=== PATIENT | female | born 1985 | race Caucasian/White ===

== ENCOUNTER 2025-02-08 13:10 | Outpatient (REF) | payer OTHER, SELFPAY ==
--- OUTSIDE RECORDS SUMMARY | 2024-01-05 13:00 | XMS_ITS ---
Author Organization [facility] Address [address] [facility] [address] [place] [address] Phone [phone] Care Team Providers Care Changeover Operator Name Role Phone Thony Das MD Unavailable [phone] Vipin Day MD Unavailable Unavailable [facility] Unavailable [phone] REASON FOR VISIT follow-up hospitalization Social History Sex Observation Social History Observation Description Sex Observation Female Encounters Date Time Type Facility Location Provider Diagnosis 01/05/2024 01:00 PM Office Visit [facility] [address] [place] [address] Susana Franz Plan Of Treatment No Information Medical (General) History Medical History History ICD Code hypothyroidism Barretts esophagus alcoholic hepatitis ascites Hepatic encephalopathy DVT RUE Chronic Anticoagulation Eliquis c dificile GERD Vaccine: None / Ningun(a) Surgical History Surgery Date(Month/Year) Lysis of adhesions and small bowel resection for possible stricture of the small bowel 2008 C section X-2 Colonoscopy Appendectomy [facility] tooth extraction Hysterectomy Hospitalization History Reason Date(Month/Year) [facility] Liver failure/ severe alcoholic hepa titis 11/27-12/25/2023 Progress Notes * ARLENE NICKDOB:1985 (39 yo F)Acc No.[id number]:01/05/2024 Hospital Follow-Up Patient: ARLENE NICK Provider: Susana Franz :1985 Age:38 Y Sex:Female Date:01/05/2024 Address:[address] [place] [address], [place], [id number] Subjective: * Chief Complaints: * Follow-up hospitalization * Electronic signature of Suleman Franz NP on 02/08/2025 at 01:25 PM EST Sign off status: Pending * Provider: Susana Franz Date: 01/05/2024 Generated for Killian viera/Cici/Ferchoitting on: 02/08/2025 01:25 PM EST
--- OUTSIDE RECORDS SUMMARY | 2024-02-08 11:30 | XMS_ITS ---
Author Organization Doug Macdonald MD Address [address] [place] [address] [place] [address] Care Team Providers Care Care Services Manager Name Role Phone Doug Macdonald IV [phone] Allergies Allergen (clinical drug ingredient) Drug/Non Drug Allergy documented on EMR Reaction Allergy Type Onset Date Status metoclopramide Reglan nausea and vomiting Drug Allergy Active morphine Morphine hives Drug Allergy Active REASON FOR VISIT follow up Medications Medication SIG (Take, Route, Frequency, Duration) Notes Start Date End Date Status Lactulose 20 GM/30ML 15 mL as needed Ora lly Once a day; Duration: 30 days 01/06/2024 Active Pepcid 40 MG 1 tablet Orally Once a day; Duration: 30 days 01/06/2024 Active Ergocalciferol 1.25 MG (94812 UT) 1 capsule Orally Active Folic Acid 1 MG 1 tablet Orally Once a day Active hydrOXYzine HCl 10 MG 1 tablet Orally Three times daily As needed for anxiety Active Systane 0.4-0.3 % as directed Ophthalmic Active Lansoprazole 30 MG 1 capsule 1/2 to 1 h our before meal Orally twice daily Active Levothyroxine Sodium 50 MCG 1 tablet in the morning on an empty stomach Orally Once a day Active Magnesium Oxide 400 MG 1 tablet as neede d Orally Once a day Active Lactulose 20 GM/30ML 15 mL Orally twice daily Active PredniSONE (Diaz) Act von rifAXIMin 550 MG 1 tablet Orally Twic e a day Active Spironolactone 25 MG 1 tablet Orally Active Thiamine Mononitrate 100 MG 1 tablet Ora lly Once a day Active Apixaban 5 MG 1 tablet Orally twic e daily Active Social History Tobacco Use: Social History Observation Description Date Details (start date - stop date) Former Smoker NA - NA Tobacco Control (Standard) Question Answer Notes Tobacco use: Former smoker How long has it been since you last smoked? Less than 1 month Encounters Encounter Location Date [place] [address] 02/08/2024 Doug Macdonald Plan Of Treatment Next Appt Details Provider Name:Doug Simon Arabella neal, 02/20/2025 09:45:00 AM, [place], [address], Provider Name:Doug Simon Arabella neal, 02/23/2025 09:15:00 AM, [place], [address], Progress Notes * Randi NICKDOB:1985 (39 yo F)Acc No.[id number]:02/08/2024 Progress Notes Patient: Randi JOHNSON Provider: Bk Macdonald MD :1985 A ge:38 Y S ex:Female Date:02/08/2024 Address:[address] [place] [address] [place] Subjective: * Chief Complaints: * 1 . Follow up. * Medical History: H ypothyroidism, Barretts Esophagus, GERD, Anxiety, DVT in Right Upper Extremity due to PICC Line. * Surgical History: C -Section x2 , Webbing of Intestines with Exploratory Lap , Hysterectomy - Dr. Vu 2020. * Family History: HTN Diabetes Thyroid disease HLD Heart attack. * Social History: T obacco Use: T obacco Control (Standard) T obacco use: F ormer smoker H ow long has it been since you last smoked??Less than 1 month D rugs/Alcohol: D rugs H ave you used drugs other than those for medical reasons in the past 12 months? N o Do you smoke marijuana?: Denies. Do you drink alcohol?: Yes. * Medications: T aking Apixaban 5 MG Tablet 1 tablet Orally twice daily , Taking Thiamine Mononitrate 100 MG Tablet 1 tablet Orally Once a day , Taking Spironolactone 25 MG Tablet 1 tablet Orally , Taking rifAXIMin 550 MG Tablet 1 tablet Orally Twice a day , Taking PredniSONE (Diaz) , Taking Systane 0.4-0.3 % Solution as directed Ophthalmic , Taking Magnesium Oxide 400 MG Tablet 1 tablet as needed Orally Once a day , Taking Levothyroxine Sodium 50 MCG Tablet 1 tablet in the morning on an empty stomach Orally Once a day , Taking Lansoprazole 30 MG Capsule Delayed Release 1 capsule 1/2 to 1 hour before meal Orally twice daily , Taking Lactulose 20 GM/30ML Solution 15 mL Orally twice daily , Taking hydrOXYzine HCl 10 MG Tablet 1 tablet Orally Three times daily As needed for anxiety, Taking Folic Acid 1 MG Tablet 1 tablet Orally Once a day , Taking Ergocalciferol 1.25 MG (14825 UT) Capsule 1 capsule Orally , Taking Pepcid 40 MG Tablet 1 tablet Orally Once a day , Taking Lactulose 20 GM/30ML Solution 15 mL as needed Orally Once a day , Medication List reviewed and reconciled with the patient * Allergies: M orphine: hives, Reglan: nausea and vomiting. Objective: * Vitals: Assessment: Plan: * Treatment: * Preventive Medicine: Screenings: F ALL RISK SCREENING Fall Risk Assessment: N o falls in the past year Plan of Care: D ocumented U rinary Incontinence Assessment: Gabriel watkinsent Masoud emale 01/06/24 - - Bone Density- - age 38 N/A - - Scan- - - - -Med- - - - -mammogram- - age 38 N/A IMMUNIZATION 01/06/24 - - -Pneumo vax - - - - - -Flu vax - - - - - - refused at this time - - -Shingles vax - - -- - - -CRC screen 01/06/24 - - - - --FIT - - - - - - - - - - --Scope- - - - - [address] Cummings - - -[facility]- - - -. * Images: * Electronic signature of Marco Macdonald IV, MD on 02/08/2025 at 01:26 PM EST Sign off status: Pending * Provider: Bk Macdonald MD Date: 04/10/2023 Generated for Killian viera/Cici/eTransmitting on: 1 04/11/2024 01:26 PM EST
--- OUTSIDE RECORDS SUMMARY | 2024-05-10 05:30 | XMS_ITS ---
Author Organization [facility] Address [address] [address] [place] [address] Care Team Providers Care Candy Forming Machine Operator Name Role Phone Lester Funes Primary Care Provider Allergies Allergen (clinical drug ingredient) Drug/Non Drug Allergy documented on EMR Reaction Allergy Type Onset Date Status metoclopramide Reglan nausea and vomiting Drug Allergy Active morphine Morphine hives Drug Allergy Active REASON FOR VISIT 1mth anxiety f/u Medications Medication SIG (Take, Route, Frequency, Duration) Notes Start Date End Date Status Eliquis 5 MG as directed Orally t wice a day Active Gabapentin 300 MG 1 capsule Orally three times a day; Duration: 90 days As needed 04/12/2024 Active buPROPion HCl ER (SR) 150 MG Days 1-3, t franklin 1 tablet daily. After day 3, take 1 tablet twice daily; Duration: 90 days 05/03/2024 Active Citalopram Hydrobromide 10 MG 1 tablet Orally Once a day; Duration: 90 days 04/12/2024 Active hydrOXYzine Pamoate 25 MG 1 tablet as ne eded Orally Once a day; Duration: 30 day(s) 04/12/2024 Active Levothyroxine Sodium 50 MCG 1 tablet in the morning on an empty stomach Orally Once a day Active Famotidine 40 MG 1 tablet Orally Once a day Active Social History AUDIT-C (Standard) Question Answer Notes Did you have a drink contain ing alcohol in the past year? Yes How often did you have a dri nk containing alcohol in the past year? Monthly or less (1 point) How many drinks did you have on a typical day when you were drinking in the past year? 1 or 2 drinks (0 point) How often did you have six o r more drinks on one occasion in the past year? Never (0 point) Points 1 Interpretation Negative Encounters Encounter Location Date Provider Diagnosis [facility] [place] [address] 05/10/2024 Lester Funes Plan Of Treatment No Information Progress Notes * Randi NICKDOB:1985 (39 yo F)Acc No.[id number]:05/10/2024 Progress Note Patient: Randi JOHNSON Provider: Lu Funes DO :1985 A ge:38 Y S ex:Female Date:05/10/2024 Address:[address] [place] [address], [id number] Subjective: * Chief Complaints: * 1 . 1mth anxiety f/u. * Medical History: L iver Problems, Thyroid Problems, Migraines, Reflux/Heart Burn. * Surgical History: A ppendectomy 2008, Stomach Surgery 2008. * Family History: 1 son(s) , 1 daughter(s) - healthy. . * Social History: D rug/Alcohol: A LEDA-C (Standard) D id you have a drink containing alcohol in the past year? Y es H ow often did you have a drink containing alcohol in the past year? M onthly or less (1 point) H ow many drinks did you have on a typical day when you were drinking in the past year? 1 or 2 drinks (0 point) H ow often did you have six or more drinks on one occasion in the past year? N ever (0 point) P oints 1 I nterpretation N egative * Medications: T aking Levothyroxine Sodium 50 MCG Tablet 1 tablet in the morning on an empty stomach Orally Once a day , Taking Famotidine 40 MG Tablet 1 tablet Orally Once a day , Taking Eliquis 5 MG Tablet as directed Orally twice a day , Taking Gabapentin 300 MG Capsule 1 capsule Orally three times a day As needed, Taking Citalopram Hydrobromide 10 MG Tablet 1 tablet Orally Once a day , Taking hydrOXYzine Pamoate 25 MG Capsule 1 tablet as needed Orally Once a day , Taking buPROPion HCl ER (SR) 150 MG Tablet Extended Release 12 Hour Days 1-3, take 1 tablet daily. After day 3, take 1 tablet twice daily , Medication List reviewed and reconciled with the patient * Allergies: M orphine: hives, Reglan: nausea and vomiting. Objective: * Vitals: Assessment: Plan: * Treatment: * Billing Information: * Visit Code: * Procedure Codes: * [place], [id number] on 02/08/2025 at 01:26 PM EST Sign off status: Pending * Provider: Lu Funes DO Date: 0 05/10/2024 Generated for Killian viera/Cici/Marissa on: 04/11/2024 01:26 PM EST
--- OUTSIDE RECORDS SUMMARY | 2024-06-16 13:15 | XMS_ITS ---
Author Organization Doug Macdonald MD Address [address] [place] [place] [address] Care Team Providers Care Residential Therapist Name Role Phone Chiquita Harvey Unavailable [phone] REASON FOR VISIT possible sinus infection Encounters Encounter Location Date Provider Diagnosis Doug Macdonald MD [address] [place] [address] [place] [address] 06/16/2024 Chiquita Harvey Plan Of Treatment Next Appt Details Provider Name:Doug neal, 02/20/2025 09:45:00 AM, [address] [place] [address] [place], [address], Provider Name:Doug neal, 02/23/2025 09:15:00 AM, [address] [place] [address] [place], [address], Progress Notes * Randi NICKDOB:1985 (39 yo F)Acc No.[id number]:06/16/2024 Progress Notes Patient: Randi JOHNSON Provider: MICAH Hurtado :1985 A ge:38 Y S ex:Female Date:06/16/2024 Address:[address] [place] Subjective: * Chief Complaints: * 1 . Possible sinus infection. * Medical History: Objective: * Vitals: Assessment: Plan: * Treatment: * Images: * Electronic signature of MICAH Pressley cca on 02/08/2025 at 01:25 PM EST Sign off status: Pending * Provider: MICAH Hurtado Date: 0 06/16/2024 Generated for Killian viera/Cici/Marissa on: 1 04/11/2024 01:25 PM EST
--- OUTSIDE RECORDS SUMMARY | 2024-06-17 12:15 | XMS_ITS ---
Author Organization Doug Macdonald MD Address [address] [place] [address] Care Team Providers Care Material Man Name Role Phone Doug Macdonald IV [phone] REASON FOR VISIT cmat Encounters Encounter Location Date Provider Diagnosis Doug Macdonald MD [address] [place] [address] [place] [address] 06/17/2024 Doug Macdonald Plan Of Treatment Next Appt Details Provider Name:Doug neal, 02/20/2025 09:45:00 AM, [address] [place] [address] [place], [address], Provider Name:Doug neal, 02/23/2025 09:15:00 AM, [address] [place] [address] [place], [address], Progress Notes * Randi NICKDOB:1985 (39 yo F)Acc No.[id number]:06/17/2024 Patient: Randi JOHNSON Provider: Bk Macdonald MD :1985 A ge:38 Y S ex:Female Date:06/17/2024 Address:[place] [place] Subjective: * Chief Complaints: * 1 . Cmat. * Medical History: Objective: * Vitals: Assessment: Plan: * Treatment: * Images: * Electronic signature of Marco Macdonald IV, MD on 02/08/2025 at 01:25 PM EST Sign off status: Pending * Provider: Bk Macdonald MD Date: 0 06/17/2024 Generated for Killian viera/Cici/Marissa on: 1 04/11/2024 01:25 PM EST
--- OUTSIDE RECORDS SUMMARY | 2025-02-08 13:25 | XMS_ITS | Patient Health Record ---
Author Organization [facility] Address [address] [address] [place] [address] Care Team Providers Care Retrofit Installer Name Role Phone Lester Funes Primary Care Provider Allergies Allergen (clinical drug ingredient) Drug/Non Drug Allergy documented on EMR Reaction Allergy Type Onset Date Status metoclopramide Reglan nausea and vomiting Drug Allergy Active morphine Morphine hives Drug Allergy Active Results Component Value Reference Range Notes TSH+Free T4 Reviewed date:04/23/2024 04:26:10 PM Interpretation: Performing Lab:[facility] [address] [place] [address], Phone - [phone], Director - Pao Notes/Report: TSH 0.400 0.450-4.500 uIU/mL T4,Free(Direct) 1.14 0.82-1.77 ng/dL Lip Reviewed date:04/23/2024 04:34:14 PM Interpretation: Performing Lab:[facility], Phone - [phone], Director - Pao Notes/Report: Glucose 90 70-99 mg/dL BUN 7 6-20 mg/dL Creatinine 0.35 0.57-1.00 mg/dL eGFR 135 >59 mL/min/1.73 BUN/Creatinine Ratio 20 9-23 Sodium 140 134-144 mmol/L Potassium 4.1 3.5-5.2 mmol/L Chloride 103 96-106 mmol/L Carbon Dioxide, Total 24 20-29 mmol/L Calcium 9.2 8.7-10.2 mg/dL Protein, Total 6.2 6.0-8.5 g/dL Albumin 3.7 3.9-4.9 g/dL Globulin, Total 2.5 1.5-4.5 g/dL Bilirubin, Total 0.5 0.0-1.2 mg/dL Alkaline Phosphatase 243 44-121 IU/L AST (SGOT) 54 0-40 IU/L ALT (SGPT) 20 0-32 IU/L Cholesterol, Total 194 100-199 mg/dL Triglycerides 56 0-149 mg/dL HDL Cholesterol 121 >39 mg/dL VLDL Cholesterol Amanuel 11 5-40 mg/dL LDL Chol Calc (NIH) 62 0-99 mg/dL WBC 3.4 3.4-10.8 x10E3/uL RBC 4.60 3.77-5.28 x10E6/uL Hemoglobin 14.5 11.1-15.9 g/dL Hematocrit 43.6 34.0-46.6 % MCV 95 79-97 fL MCH 31.5 26.6-33.0 pg MCHC 33.3 31.5-35.7 g/dL RDW 13.8 11.7-15.4 % Platelets 111 150-450 x10E3/uL Neutrophils 58 Not Estab. % Lymphs 28 Not Estab. % Monocytes 11 Not Estab. % Eos 2 Not Estab. % Basos 1 Not Estab. % Neutrophils (Absolute) 2.0 1.4-7.0 x10E3/uL Lymphs (Absolute) 0.9 0.7-3.1 x10E3/uL Monocytes(Absolute) 0.4 0.1-0.9 x10E3/uL Eos (Absolute) 0.1 0.0-0.4 x10E3/uL Baso (Absolute) 0.0 0.0-0.2 x10E3/uL Immature Granulocytes 0 Not Estab. % Immature Grans (Abs) 0.0 0.0-0.1 x10E3/uL Reason For Referral Reason dysplastic lesion on abdomen Diagnosis 1 Skin lesion (L98.9) [facility] Referring Provider First Name Lester Referring Provider Last Name Marin Referring Provider Speciality Family [facility] ctice Referred Provider Specialty Dermatology Clinical Notes Dennis Patel 04/19/2024 04:50:34 PM > [place] [facility] [place] Referral Priority Routine Medications Medication SIG (Take, Route, Frequency, Duration) Notes Start Date End Date Status Eliquis 5 MG as directed Orally t wice a day Active Gabapentin 300 MG 1 capsule Orally three times a day; Duration: 90 days As needed 04/12/2024 Active hydrOXYzine Pamoate 25 MG 1 tablet as ne eded Orally Once a day; Duration: 30 days Active Levothyroxine Sodium 50 MCG 1 tablet in the morning on an empty stomach Orally Once a day Active Famotidine 40 MG 1 tablet Orally Once a day Active buPROPion HCl ER (SR) 150 MG Days 1-3, t franklin 1 tablet daily. After day 3, take 1 tablet twice daily; Duration: 90 days 05/03/2024 Active Citalopram Hydrobromide 10 MG 1 tablet Orally Once a day; Duration: 90 days 04/12/2024 Active Social History Tobacco Use: Social History Observation Description Date Details (start date - stop date) Current Smoker NA - NA AUDIT-C (Standard) Question Answer Notes Did you [...] Never (0 point) Points 1 Interpretation Negative Tobacco Control (Standard) Question Answer Notes Tobacco use: Current smoker How often do you smoke cigarettes? Every day How many cigarettes a day do you smoke? 5 or les s How soon after you wake up do you smoke your fir st cigarette? Within 5 minutes Problems Problem Type SNOMED Code ICD Code Onset Dates Problem Status W/U Status Risk Notes Problem Generalized anxiety disorder (19634083) Generalized anxiety disorder (F41.1) Active confirmed prescribed celexa. told pt to call office for worsening or persistent symptoms Problem Smoking (74137873) Smoking (F17.200) Active con firmed Problem Gastroesophageal reflux disease (894590903) GERD (gastroesophageal reflux disease) (K21.9) Active confirmed stable, continue current therapy Problem Hypothyroidism (42143981) Hypothyroidism (E03.9) Active confirmed Problem Thrombocytopenia (288745949) Thrombocytopenia (D69.6) Active confirmed Problem Neuropathy (340412555) Neuropathy (G62.9) Active confirmed presc ribed gabapentin. told pt to call office for worsening or persistent symptoms Problem Hyperlipidaemia (94764868) Hyperlipemia (E78.5) Active confirmed Problem Cigarette smoker (51114123) Cigarette smoker (F17.210) Active confirmed discussed smoking cessation methods, health effects of smoking in the short term and long filler cigar roller machine , and the benefits of smoking cessation for 4 minutes Vital Signs Heart Rate 81 /min 04/12/2024 Temperature 99.1 degrees Fahrenheit 04/12/2024 Oximetry 98 % 04/12/2024 Height 5ft in 04/12/2024 Weight 104.2 lbs 04/12/2024 BMI 20.35 kg/m2 04/12/2024 Encounters Encounter Location Date Provider Diagnosis [facility] [address] [facility] [address] [place] [address] 04/12/2024 Lester Marin Skin lesion L98.9 ; History of DVT in adulthood Z86.718 ; Neuropathy G62.9 ; Hyperlipemia E78.5 ; Hypothyroid E03.9 ; Generalized anxiety disorder F41.1 ; GERD (gastroesophageal reflux disease) K21.9 ; Hypothyroidism E03.9 ; Disorder of trigeminal nerve, 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 and Cigarette smoker F17.210 [facility] [address] [place] [address] 05/03/2024 Lester Funes [facility] [address] [place] [address] 04/12/2024 Lester Wallaceaham [facility] [address] [place] [address] 04/19/2024 Lester Wallaceaham [facility] [address] [place] [address] 04/23/2024 Lester Wallaceaham [facility] [address] [place] [address] 04/25/2024 Lester Funes [facility] [address] [facility] [address] [place] [address] 05/02/2024 Lester Wallaceaham [facility] [address] [facility] [address] [place] [address] 05/03/2024 Lester Funes [facility]-[address] [place] [address] 05/03/2024 Lester Funes Thrombocytopenia D69 .6 ; Elevated alkaline phosphatase level R74.8 and Elevated liver enzymes R74.[address] [place] [address] 05/03/2024 Lester Funes Smoking F17.200 [facility] [place] [address] 06/17/2024 Lester Funes Skin lesion L98.9 Assessments Encounter Date Diagnosis (ICD Code) Assessment Notes Treatment Notes Treatment Clinical Notes Section Notes 04/12/2024 Skin lesion (ICD-10 - L98.9) referred to dermatology 04/12/2024 History of DVT in adulthood (ICD-10 - Z86.718) stable, continue current therapy 05/03/2024 Thrombocytopenia (ICD-10 - D69.6) 05/03/2024 Elevated alkaline phosphatase level (ICD-10 - R74.8) 05/03/2024 Smoking (ICD-10 - F17.200) 06/17/2024 Skin lesion (ICD-10 - L98.9) 05/03/2024 Elevated liver enzymes (ICD-10 - R74.8) 04/12/2024 Neuropathy (ICD-10 - G62.9) prescribed gabapentin. told pt to call office for worsening or persistent symptoms 04/12/2024 Hyperlipemia (ICD-10 - E78.5) 04/12/2024 Hypothyroid (ICD-10 - E03.9) stable, continue current therapy 04/12/2024 Generalized anxiety disorder (ICD-10 - F41.1) prescribed celexa. told pt to call office for worsening or persistent symptoms 04/12/2024 GERD (gastroesophageal reflux disease) (ICD-10 - K21.9) stable, continue current therapy 04/12/2024 Hypothyroidism (ICD-10 - E03.9) 04/12/2024 Disorder of trigeminal nerve, unspecified (ICD-10 - G50.9) prescribed gabapentin. told pt to call office for worsening or persistent symptoms 04/12/2024 Cigarette smoker (ICD-10 - F17.210) discussed smoking cessation methods, health effects of smoking in the short term and long filler cigar roller machine , and the benefits of smoking cessation for 4 minutes Plan Of Treatment No Information Insurance Providers Payer Name Payer Address Payer Phone Subscriber Number Group Number Insured Name Patient Relationship to Insured Coverage Start Date Coverage End Date [facility] [address] [place] [address] [id number] Randi Nick Self - patient is the insured Medical (General) History Medical History History ICD Code Liver Problems Thyroid Problems Migraines Reflux/Heart Burn Surgical History Surgery Date(Month/Year) Appendectomy 2008 Stomach Surgery 2008
--- OUTSIDE RECORDS SUMMARY | 2025-02-08 13:25 | XMS_ITS | Patient Health Record ---
Author Organization Doug Macdonald MD Address [address] [place] [address] [place] [address] Care Team Providers Care Feather Stitcher Name Role Phone Doug Macdonald IV Unavailable [phone] Chiquita Harvey Unavailable [phone] Allergies Allergen (clinical drug ingredient) Drug/Non Drug Allergy documented on EMR Reaction Allergy Type Onset Date Status duloxetine Cymbalta hallucinations Drug Allergy A ctive metoclopramide Reglan nausea and vomiting Drug Allergy Active morphine Morphine hives Drug Allergy Active Results Component Value Reference Range Notes CT ABDOMEN AND PELVIS Reviewed date:05/24/2024 11:11:28 AM Interpretation:Hepatic steatosis Performing Lab: Notes/Report: Hepatic steatosis CMP14+eGFR (Not yet reviewed by provider) Interpretation: Performing Lab:[facility], [address] [place] [address], Phone - [phone], Director - Pao Notes/Report: Glucose 94 70-99 mg/dL BUN 8 6-20 mg/dL Creatinine 0.51 0.57-1.00 mg/dL eGFR 123 >59 mL/min/1.73 BUN/Creatinine Ratio 16 9-23 Sodium 140 134-144 mmol/L Potassium 4.3 3.5-5.2 mmol/L Chloride 102 96-106 mmol/L Carbon Dioxide, Total 25 20-29 mmol/L Calcium 9.2 8.7-10.2 mg/dL Protein, Total 6.2 6.0-8.5 g/dL Albumin 3.6 3.9-4.9 g/dL Globulin, Total 2.6 1.5-4.5 g/dL Bilirubin, Total 0.5 0.0-1.2 mg/dL Alkaline Phosphatase 205 44-121 IU/L AST (SGOT) 47 0-40 IU/L ALT (SGPT) 19 0-32 IU/L Lipid Panel (Not yet reviewe d by provider) Interpretation: Performing Lab:[address], Phone - [phone], Director - [facility] Notes/Report: Cholesterol, Total 197 100-199 mg/dL Triglycerides 62 0-149 mg/dL HDL Cholesterol 116 >39 mg/dL VLDL Cholesterol Amanuel 11 5-40 mg/dL LDL Chol Calc (NIH) 70 0-99 mg/dL TSH+Free T4 (Not yet reviewe d by provider) Interpretation: Performing Lab:[address], Phone - [phone], Director - [facility] Notes/Report: TSH 0.244 0.450-4.500 uIU/mL T4,Free(Direct) 0.96 0.82-1.77 ng/dL Ammonia, Plasma (Not yet rev iewed by provider) Interpretation: Performing Lab:[address], Phone - [phone], Director - [facility] Notes/Report: Ammonia, Plasma 53 30-130 ug/dL C-Reactive Protein, Quant (N ot yet reviewed by provider) Interpretation: Performing Lab:[address], Phone - [phone], Director - [facility] Notes/Report: C-Reactive Protein, Quant <1 0-10 mg/L CBC With Differential/Platel et (Not yet reviewed by provider) Interpretation: Performing Lab:[address], Phone - [phone], Director - [facility] Notes/Report: WBC 3.6 3.4-10.8 x10E3/uL RBC 4.58 3.77-5.28 x10E6/uL Hemoglobin 14.6 11.1-15.9 g/dL Hematocrit 43.4 34.0-46.6 % MCV 95 79-97 fL MCH 31.9 26.6-33.0 pg MCHC 33.6 31.5-35.7 g/dL RDW 13.6 11.7-15.4 % Platelets 121 150-450 x10E3/uL Neutrophils 51 Not Estab. % Lymphs 35 Not Estab. % Monocytes 11 Not Estab. % Eos 2 Not Estab. % Basos 1 Not Estab. % Neutrophils (Absolute) 1.8 1.4-7.0 x10E3/uL Lymphs (Absolute) 1.3 0.7-3.1 x10E3/uL Monocytes(Absolute) 0.4 0.1-0.9 x10E3/uL Eos (Absolute) 0.1 0.0-0.4 x10E3/uL Baso (Absolute) 0.0 0.0-0.2 x10E3/uL Immature Granulocytes 0 Not Estab. % Immature Grans (Abs) 0.0 0.0-0.1 x10E3/uL Creatine Kinase,Total,Serum (Not yet reviewed by provider) Interpretation: Performing Lab:[facility], [address] [place] [address], [place], Phone - [phone], Director - Pao Notes/Report: Creatine Kinase,Total 42 32-182 U/L Reason For Referral Reason 1986 Diagnosis 1 Liver disease, unspe cified (K76.9) Referred Provider Specialty Medical cons ultation Referral Priority Routine Diagnosis 1 Liver disease, unspe cified (K76.9) Referral Organization Doug Macdonald MD Referring Provider First Name Doug Referring Provider Last Name Renae Referring Provider Speciality Internal M edicine Referred Provider Alf Cummings Referred Provider Specialty Gastroentero logy Referral Priority Routine Medications Medication SIG (Take, Route, Frequency, Duration) Notes Start Date End Date Status DULoxetine HCl 30 MG 1 capsule Orally On ce a day; Duration: 90 days 05/11/2024 Active hydrOXYzine HCl 10 MG 1 tablet Orally Three times daily As needed for anxiety Active Systane 0.4-0.3 % as directed Ophthalmic Active Cyanocobalamin 1000 MCG/ML 1 mL Injectio n once a month; Duration: 30 days 05/11/2024 Active Levothyroxine Sodium 50 MCG 1 tablet in the morning on an empty stomach Orally Once a day; Duration: 30 days Active Pepcid 40 MG 1 tablet Orally Once a day; Duration: 90 days 01/06/2024 Active Lactulose 20 GM/30ML 15 mL as needed Ora lly Once a day; Duration: 30 days 01/06/2024 Active Social History Tobacco Use: Social History Observation Description Date Details (start date - stop date) Current Smoker NA - NA AUDIT-C (Standard) Question Answer Notes Did you have a drink containing alcohol in the p ast year? No Points 0 Interpretation Negative Tobacco Control (Standard) Question Answer Notes Tobacco use: Current smoker How often do you smoke cigarettes? Every day How many cigarettes a day do you smoke? 5 or les s Are you interested in quitting? 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) Active confirmed Problem Liver disease (739517570) Liver disease, unspecified (K76.9) Active confirmed Problem Hypothyroidism (35577579) Hypothyroidism (E03.9) Active confirmed Problem Gastroesophageal reflux disease (976476158) GERD (gastroesophageal reflux disease) (K21.9) Active confirmed Problem Vitamin D deficiency (90730300) Vitamin D deficiency (E55.9) Active confirmed Problem Sinusitis (61131978) Sinusitis (J32.9) Active confirmed Problem Anxiety disorder (957882430) Mixed anxiety depressive disorder (F41.8) Active confirmed Problem Abnormal gait (06881721) Impaired gait (R26.9) Active confirmed Problem Cirrhosis of liver (84442680) Cirrhosis of liver (K74.60) Active confirmed Problem Inflammatory and toxic neuropathy (700147169) Peripheral polyneuropathy (G62.9) Active confirmed Problem Tobacco user (877051998) Nicotine dependence with current use (F17.200) Active confirmed Vital Signs Heart Rate 95 /min 08/30/2024 Temperature 97.1 degrees Fahrenheit 08/30/2024 Blood pressure diastolic 68 mm Hg 08/30/2024 Oximetry 98 % 08/30/2024 Height 60 in 08/30/2024 Blood pressure systolic 112 mm Hg 08/30/2024 Weight 107.2 lbs 08/30/2024 BMI 20.93 kg/m2 08/30/2024 Encounters Encounter Location Date Provider Diagnosis Doug Macdonald MD [address] [place] [address] [place] [address] 04/29/2024 Doug Macdonald Hypothyroidism, unspecified type E03.9 ; Vitamin D deficiency E55.9 ; Cirrhosis of liver K74.60 ; Lipid screening Z13.220 and Medication management Z79.899 Doug Macdonald MD [address] [place] [address] [place] [phone] 05/11/2024 Doug Macdonald Elevated LFTs R79.89 ; Cirrhosis of liver K74.60 ; Acute embolism and thrombosis of deep veins of unspecified upper extremity I82.629 ; Peripheral polyneuropathy G62.9 ; Hypothyroidism E03.9 ; Mixed anxiety depressive disorder F41.8 and Nicotine dependence with current use F17.200 Doug Macdonald MD [address] [place] [address] [place] [address] 06/16/2024 Chiquita Morosky Sinusitis J32.9 ; Si nus headache R51.9 ; Febrile illness R50.9 ; Acute cough R05.1 and Myalgia M79.10 Doug Macdonald MD [address] [place] [address] [place] [address] 08/30/2024 Doug Macdonald Hypothyroidism E03.9 ; Mixed anxiety depressive disorder F41.8 ; Nguyen's esophagus without dysplasia K22.70 ; GERD (gastroesophageal reflux disease) K21.9 ; Nicotine dependence with current use F17.200 ; Tobacco abuse counseling Z71.6 and BMI 20.0-20.9, adult Z68.20 Doug Macdonald MD [address] [place] [address] [place] [phone] 11/17/2024 Doug Macdonald MD [address] [place] [address] [place] [phone] 02/18/2024 Doug Macdonald MD [address] [place] [address] [place] [phone] 02/18/2024 Doug Macdonald MD [address] [place] [address] [place] [phone] 02/24/2024 Doug Macdonald MD [address] [place] [address] [place] [phone] 05/24/2024 Doug Macdonald MD [address] [place] [address] [place] [phone] 07/07/2024 Doug Macdonald Assessments Encounter Date Diagnosis (ICD Code) Assessment Notes Treatment Notes Treatment Clinical Notes Section Notes 04/29/2024 Hypothyroidism, unspecified type (ICD-10 - E03.9) 05/11/2024 Elevated LFTs (ICD-10 - R79.89) 05/11/2024 Cirrhosis of liver (ICD-10 - K74.60) Patient is followed GI in [place]. Continue to monitor. Will check CT Abdomen/Pelvis due to elevated LFTs 08/30/2024 Hypothyroidism (ICD-10 - E03.9) Patient is currently on Thyroid medication and is noted with thyroid levels within normal limits. Will advise to continue on current dose. Check level on next visit. 08/30/2024 Mixed anxiety depressive disorder (ICD-10 - F41.8) Patient is currently on anxiety/depression medication and is doing well. Will advise to continue on current dose. Patient denies any suicidal or homicidal ideations. Patient to inform office of any changes. 06/16/2024 Sinusitis (ICD-10 - J32.9) COVID-19 swab negative, flu swab negative. DDT 3 mL given IM this visit. Rocephin 1 g given IM this visit. Begin Augmentin 875 twice daily x 10 days. Begin Medrol Dosepak as directed. Advised patient seek medical attention for worsening of symptoms. 06/16/2024 Sinus headache (ICD-10 - R51.9) COVID-19 swab negative, flu swab negative. DDT 3 mL given IM this visit. Rocephin 1 g given IM this visit. Begin Augmentin 875 twice daily x 10 days. Begin Medrol Dosepak as directed. Advised patient seek medical attention for worsening of symptoms. 06/16/2024 Febrile illness (ICD-10 - R50.9) COVID-19 swab negative, flu swab negative. DDT 3 mL given IM this visit. Rocephin 1 g given IM this visit. Begin Augmentin 875 twice daily x 10 days. Begin Medrol Dosepak as directed. Advised patient seek medical attention for worsening of symptoms. 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 08/30/2024 Nguyen's esophagus without dysplasia (ICD-10 - K22.70) 05/11/2024 Acute embolism and thrombosis of deep veins of unspecified upper extremity (ICD-10 - I82.629) Continue anticoagulation at this time. Will monitor. 04/29/2024 Vitamin D deficiency (ICD-10 - E55.9) 04/29/2024 Cirrhosis of liver (ICD-10 - K74.60) 05/11/2024 Peripheral polyneuropathy (ICD-10 - G62.9) Increase Gabapentin 600mg BID, Stop Citalopram and start Cymbalta 30mg daily, Start B12 1000mg IM q monthly. Will check CMAT. Patient to follow up after CMAT completed. 08/30/2024 GERD (gastroesophageal reflux disease) (ICD-10 - K21.9) Contiune current therapy at this time. 06/16/2024 Acute cough (ICD-10 - R05.1) COVID-19 swab negative, flu swab negative. DDT 3 mL given IM this visit. Rocephin 1 g given IM this visit. Begin Augmentin 875 twice daily x 10 days. Begin Medrol Dosepak as directed. Advised patient seek medical attention for worsening of symptoms. Begin Tessalon Perles 100 mg 3 times daily as needed for cough. 06/16/2024 Myalgia (ICD-10 - M79.10) COVID-19 swab negative, flu swab negative. DDT 3 mL given IM this visit. Rocephin 1 g given IM this visit. Begin Augmentin 875 twice daily x 10 days. Begin Medrol Dosepak as directed. Advised patient seek medical attention for worsening of symptoms. 08/30/2024 Nicotine dependence with current use (ICD-10 - F17.200) Discussed tobacco cessation on today's visit. Discussed tobacco cessation/counsell ing given. Patient advised of cessation but patient is not ready to quit at this time. 05/11/2024 Hypothyroidism (ICD-10 - E03.9) Patient is currently on Thyroid medication and is noted with thyroid levels within normal limits. Will advise to continue on current dose. Check level on next visit. 04/29/2024 Lipid screening (ICD-10 - Z13.220) 04/29/2024 Medication management (ICD-10 - Z79.899) 05/11/2024 Mixed anxiety depressive disorder (ICD-10 - F41.8) Will stop Citalopram at this time. Start Cymbalta 30mg daily. 08/30/2024 Tobacco abuse counseling (ICD-10 - Z71.6) 08/30/2024 BMI 20.0-20.9, adult (ICD-10 - Z68.20) 05/11/2024 Nicotine dependence with current use (ICD-10 - F17.200) Efra is currently taking Wellbutrin to try to stop smoking. Cessation advised. Plan Of Treatment Pending Test Test Name Order Date Creatine Kinase,Total,Serum 01/04/2024 Creatine Kinase,Total,Serum 02/04/2024 Creatine Kinase,Total,Serum 04/29/2024 Magnesium, Serum 02/04/2024 Magnesium, Serum 01/06/2024 GGT 01/06/2024 CBC With Differential/Platelet CBC With Differential/Platelet CBC With Differential/Platelet C-Reactive Protein, Quant 04/29/2024 C-Reactive Protein, Quant 02/04/2024 C-Reactive Protein, Quant 01/04/2024 Ammonia, Plasma 01/04/2024 Ammonia, Plasma 02/04/2024 Ammonia, Plasma 01/20/2024 Ammonia, Plasma 04/29/2024 PTH, Intact 01/04/2024 Vitamin D, 25-Hydroxy 01/04/2024 D-Dimer 01/06/2024 TSH+Free T4 01/04/2024 TSH+Free T4 04/29/2024 Lipid Panel 04/29/2024 Lipid Panel 01/04/2024 CMP14+eGFR 01/04/2024 CMP14+eGFR 02/04/2024 CMP14+eGFR 04/29/2024 CTA CHEST (PE) 01/12/2024 Next Appt Details Provider Name:Doug Aguilarnick neal, 02/20/2025 09:45:00 AM, [place] [address], [address], Provider Name:Doug Bell val, 02/23/2025 09:15:00 AM, [place], [address], Insurance Providers Payer Name Payer Address Payer Phone Subscriber Number Group Number Insured Name Patient Relationship to Insured Coverage Start Date Coverage End Date R formerly [facility] [address] [address] [place] [address] [id number] Randi Nick Self - patient is the insured Medical (General) History Medical History History ICD Code Hypothyroidism Barretts Esophagus GERD DVT in Right Upper Extremity due to PICC Line Cirrhosis of liver K74.60 Peripheral polyneuropathy G62.9 Nicotine dependence with current use F17 .200 Mixed anxiety depressive disorder F41.8 Surgical History Surgery Date(Month/Year) x2 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 Vu 2020
--- OUTSIDE RECORDS SUMMARY | 2025-02-08 13:26 | XMS_ITS | Clinical Summary ---
Author Organization [facility] ivision Address [address] [place] [address] Care Team Providers Care Channel Opener Outsoles Name Role Phone Obed Amezcua MD Primary Care Provider Unavaila ble Allergies Active Allergy Reactions Criticality Noted Date Comments Morphine Hives Medium 11/28/2023 Medications peg 400-propylene glycol 0.4-0.3 % Drops Place 1 drop into both eyes every 6 (six) hours 20 mL 12/25/2023 Active lactulose (CHRONULAC) 20 gram/30 mL solution Take 15 mLs (10 g total) by mouth in the morning and 15 mLs (10 g total) before bedtime. 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 difficile colitis 12/01/2023 024 Social History Tobacco Use Types Packs/Day Years Used Date Smoking Tobacco: Never Assessed Comments Unknown Sex and Gender Information Value Date Recorded Sex Assigned at Not on file Legal Sex Female 8:28 EDT Gender Identity Not on file Sexual Orientation Not on file Last Filed Vital Signs Vital Sign Reading Time Taken Comments Blood Pressure 101/72 12/25/2023 1226 EST Pulse 72 12/25/2023 1226 EST Temperature 37 C (98.6 F) 12/25/2023 1226 EST Respiratory Rate 16 12/25/2023 1226 EST Oxygen Saturation 95% 12/25/2023 1226 EST Inhaled Oxygen Concentration - - Weight 54.2 kg (119 lb 7.8 oz) 12/14/2023 1052 E DT Height 153 cm (5' 0.24 ) 12/01/2023 1157 EDT Body Mass Index 23.15 12/01/2023 1157 EDT Plan of Treatment Health Maintenance Due Date Last Done Comments Annual Wellness Visit 1986 MMR Vaccines (1 of 1 - Stand luis series) 10/27/1987 Depression Screening 1998 DTaP/Tdap/Td Vaccines (1 - Tdap) 2005 Hepatitis A Vaccines (1 of 2 - Risk 2-dose series) 2005 Hepatitis B Vaccines (1 of 3 - 19+ 3-dose series) 2005 Pap Smear 10/27/2007 Cervical Cancer Screening 2016 HPV/Cotest 2016 COVID-19 Vaccine (2024-2 6 season) 2024 RSV Vaccine: Adult (1 - 1-do se 75+ series) 2061 HIV Screening Completed 11/28/2023 HIB Vaccines Aged Out No longer eligi ble based on patient's age to complete this topic HPV Vaccines (No Doses Required) Completed IPV Vaccines Aged Out No longer eligi ble based on patient's age to complete this topic Influenza Vaccine Discontinued Meningococcal B Vaccine Aged Out No l onger eligible based on patient's age to complete this topic Meningococcal Vaccine Aged Out No justin dedra eligible based on patient's age to complete this topic Pneumococcal Vaccine: Pediat yaw (0 to 5 Years) and At-Risk Patients (6 to 49 Years) Aged Out No longer eligi ble based on patient's age to complete this topic RSV Vaccine: < 20 Months Aged Out No longer eligible based on patient's age to complete this topic Rotavirus Vaccines Aged Out No longer eligible based on patient's age to complete this topic Procedures Procedure Name Priority Date/Time Associated Diagnosis Comments HIV-1 AND HIV-2 ANTIBODIES Routine 11/28/2023 15:48 EDT from Last 3 Months or Most Recently Relevant to Health Maintenance Results * HIV-1 and HIV-2 antibodies (11/28/2023 15:48 EDT) S/CO-HIV 0.08 LAB [facility] Non[facility] Nonreactive LAB CHEMISTRY METHOD 11/28/2023 18:13 [facility] Blood BLOOD / Unknown Venipuncture / Unknown 11/28/2023 15:48 EDT 11/28/2023 16:41 EDT [facility]ORATORY - 11/28/2023 18:13 EDT This test was performed using a 4th generation HIV test that may detect HIV P24 antigen, HIV-1 and/or HIV-2 antibodies as early as 17 days after exposure to the HIV virus. Previously unconfirmed positive HIV-1 and/or HIV-2 antibodies test will automatically be reflexed to a HIV-1/2 Antibody Differential test. All positive HIV-1 and/or HIV-2 test results for either method should be followed up with further medical evaluation. us Vipin Day MD LAB BLOOD ORDERABLES Final Resu lt [facility] [address] from Last 3 Months or Most Recently Relevant to Health Maintenance Additional Health Concerns Infection Onset Date Last Indicated C. difficile Comment:Pt must remain on contact plus isolation in a private room until asymptomatic for 48 hours Hands must be washed with soap and water/ use bleach to clean/disinfect surfaces All equipment used in room must be wiped down with orange top wipes (items must stay wet for 4 minutes to kill C diff) After asymptomatic for 48 hours, pt must be bathed, placed in a new gown, and be moved to a new bed in a new room to be removed from contact+ isolation *IF PT IS COLONIZED, THEY MUST REMAIN ON CONTACT PLUS ISOLATION WHILE HAVING DIARRHEA/LOOSE STOOL 11/28/2023 11/29/2023 MRSA Comment:Pt is to remain on contact isolation for 1 year from onset date (date). Pt may be removed from isolation at 7-11 months if culture from original source and MRSA PCR screen are both negative. MRSA NARES: We are not currently isolating for MRSA colonization in the nares. However, if a pt has an active MRSA infection, then they must be placed on contact isolation. *ONLY For NICU babies we do contact isolation for MRSA in the nares (Duration of hospital stay) 11/28/2023 11/29/2023 Insurance MEDICAID PENDING [facility] PENDING Advance Directives * Full Code (Latest Code Status on File) Date Activated Date Inactivated Comments 11/28/2023 12:21 12/25/2023 16:29 Care Teams Channel Opener Outsoles Relationship Specialty Start Date End Date Obed Amezcua MD PCP - General 11/17/23
--- OUTSIDE RECORDS SUMMARY | 2025-02-08 13:26 | XMS_ITS | Patient Health Record ---
Author Organization [facility] Address [address] [facility] [address] [place] [address] Phone [phone] Care Team Providers Care Supervisor Treating And Pumping Name Role Phone Thony Das MD Unavailable [phone] Vipin Day MD Unavailable Unavailable Allergies Allergen (clinical drug ingredient) Drug/Non Drug Allergy documented on EMR Reaction Allergy Type Onset Date Status morphine morphine (uncoded) hives Allergy A ctive metoclopramide reglan (uncoded) vomiting Allergy Active metoclopramide Reglan Unknown Drug Allergy Ac tive morphine Morphine Unknown Drug Allergy Active Results Component Value Reference Range Flag Notes Drug Monitoring Template Order date: 02/25/2024 Reviewed date:03/03/2024 02:01:06 PM Interpretation: Performing Lab:AT, [facility][id number] [facility] [address] Andrea Notes/Report: FASTING:NO FASTING: NO Notes and Comments This drug testing is for medical treatment only. Analysis was performed as non-forensic testing and these results should be used only by healthcare providers to render diagnosis or treatment, or to monitor progress of medical conditions. LDT Notes: Confirmation tests were developed and their analytical performance characteristics have been determined by [facility]. It has not been cleared or approved by the FDA. This assay has been validated pursuant to the CLIA regulations and is used for clinical purposes. Healthcare Providers needing Interpretation assistance, please contact us at [phone] ( ) M-F, 8am to 10pm EST Magnesium Order date: 02/25/2024 Reviewed date:03/03/2024 02:01:06 PM Interpretation: Performing Lab:AT, [facility]-[id number] [place], [place] [address] [address] Dr [address] Andrea Notes/Report: FASTING:NO FASTING: NO MAGNESIUM 1.7 1.5-2.5 mg/dL N Ceruloplasmin Order date: 02/25/2024 Reviewed date:03/03/2024 02:01:06 PM Interpretation: Performing Lab:AT, [facility] [address] Andrea Notes/Report: FASTING:NO FASTING: NO Hepatitis B Surface Antibody Quantitative (HBV s Ab Quantitative) Order date: 02/25/2024 Reviewed date:03/03/2024 02:01:06 PM Interpretation: Performing Lab:AT, [facility][id number] [address] Andrea Notes/Report: FASTING:NO FASTING: NO HEPATITIS B SURFACE AB IMMUNITY, QN <5 > OR = 10 mIU/mL L Patient does not have immunity to hepatitis B virus. For additional information, please refer to http://education.Politapoll/faq/MGY620 (This link is being provided for informational/ educational purposes only). CMP Complete Metabolic Panel Order date: 02/25/2024 Reviewed date:03/03/2024 02:01:06 PM Interpretation: Performing Lab:AT, [facility][id number] [facility] [address] Andrea Notes/Report: FASTING:NO FASTING: NO EGFR 129 > OR = 60 mL/min/1.73m2 N Phosphatidylethanolol (PEth) Order date: 02/25/2024 Reviewed date:03/03/2024 02:01:06 PM Interpretation: Performing Lab:AMD, [facility]/Jeaneth Artis [id number] [facility] , [id number] Jeremiah Tolliver M.D.,PhD Notes/Report: FASTING:NO FASTING: NO PEth 16:0/18:1 (POPEth) 283 <20 ng/mL H PEth 16:0/18:2 (PLPEth) 289 <20 ng/mL H PEth Comments See LDT Not es CBC with Differential (Compl ete Blood Cell Count with Differential) Order date: 02/25/2024 Reviewed date:03/03/2024 02:01:06 PM Interpretation: Performing Lab:AT, [facility][id number] [facility] [address] Andrea Notes/Report: FASTING:NO FASTING: NO WHITE BLOOD CELL COUNT 4.1 3.8-10.8 Thousand/uL N RED BLOOD CELL COUNT 3.94 3.80-5.10 Million/uL N HEMOGLOBIN 12.1 11.7-15.5 g/dL N HEMATOCRIT 36.5 35.0-45.0 % N MCV 92.6 80.0-100.0 fL N MCH 30.7 27.0-33.0 pg N MCHC 33.2 32.0-36.0 g/dL N For adults, a slight decrease in the calculated MCHC value (in the range of 30 to 32 g/dL) is most likely not clinically significant; however, it should be interpreted with caution in correlation with other red cell parameters and the patient's clinical condition. RDW 13.0 11.0-15.0 % N PLATELET COUNT 173 140-400 Thousand/uL N MPV 9.5 7.5-12.5 fL N ABSOLUTE NEUTROPHILS 1939 9018-1222 cells/uL N ABSOLUTE LYMPHOCYTES 3904 083-1738 cells/uL N ABSOLUTE MONOCYTES 365 200-950 cells/uL N ABSOLUTE EOSINOPHILS 82 15-500 cells/uL N ABSOLUTE BASOPHILS 49 0-200 cells/uL N NEUTROPHILS 47.3 N LYMPHOCYTES 40.6 N MONOCYTES 8.9 N EOSINOPHILS 2.0 N BASOPHILS 1.2 N PT INR (Prothrombin Time and INR) Order date: 02/25/2024 Reviewed date:03/03/2024 02:01:06 PM Interpretation: Performing Lab:AT, [facility][id number] [facility] [address] Andrea Notes/Report: FASTING:NO FASTING: NO INR 1.2 H Reference Range 0.9-1.1 Moderate-intensity Warfarin Therapy 2.0-3.0 Higher-intensity Warfarin Therapy 3.0-4.0 PT 12.8 9.0-11.5 sec H For additional information, please refer to http://[employer].Politapoll/faq/NFU550 (This link is being provided for informational/ educational purposes only.) Reason For Referral No Information Medications Medication SIG (Take, Route, Frequency, Duration) Notes Start Date End Date Diagnosis (ICD Code) Status Ergocalciferol 1.25 MG (05460 UT) Capsule 1 capsule Orally Once a week Active Eliquis 5 MG Tablet 1 TABLET Orally Twice a day Active Famotidine 40 MG Tablet 1 tablet Orally Once a day Active hydrOXYzine HCl 10 MG Tablet 1 tablet as needed Orally Once a day Active Levothyroxine Sodium 50 MCG Tablet 1 tablet in the morning on an empty stomach Orally Once a day Active Lactulose 10 GM/15ML Solution 15 ml Orally Once a day Active Spironolactone 25 MG Tablet 1 tablet Orally Active Magnesium 400 MG Capsule as directed Orally Active Social History Tobacco Use: Social History Observation Description Date Details (start date - stop date) Former Smoker NA - NA Sex Observation Social History Observation Description Sex Observation Female Social History Drugs: Social Info Question Answer Notes Drugs: Current or past use of IV or Recreational Drugs: Never / Nunca Alcohol: Social Info Question Answer Notes Alcohol Current or past use of alcohol: Former / Ex Tobacco Use: Social Info Question Answer Notes Smoker / Non-smoker Current or past use of tobacco: Former / Ex Additional Details Category Social Info Options Details Vaping Current or past use of vaping: Never / Nunca Section Notes: She is and has 2 children She stopped cigarette smoking in November 2023 She stopped alcohol completely in November 2023 Problems Problem Type SNOMED Code ICD Code Dates Problem Status W/U Status Risk Notes Problem Hypomagnesemia (779544618) Hypomagnesemia (E83.42) Added On:02/24 Active confirmed Problem Acute alcoholic liver disease (1099788) Alcoholic hepatitis with ascites (K70.11) Added On:12/08 Active confirmed Problem Acute alcoholic hepatitis (3269083) Acute alcoholic hepatitis (K70.10) Added On:02/23 Active confirmed Problem Ascites due to alcoholic hepatitis (9715560798705146 ) Ascites due to alcoholic hepatitis (K70.11) Added On:02/23 Active confirmed Problem Hepatic encephalopathy (76448441) Hepatic encephalopathy (K76.82) Added On:02/23 Active confirmed Vital Signs Vital Sign Value Notes Appt Date Heart Rate 73 /min 02/25/2024 Temperature 97.5 degrees Fahrenheit 10/2024 Respiratory Rate 18 /min 02/25/2024 Blood pressure diastolic 62 mm Hg 10/2024 Weight-kg 47.81 kg 02/25/2024 Height 60 in 02/25/2024 Blood pressure systolic 93 mm Hg 10/2024 Weight 105.4 lbs 02/25/2024 BMI 20.58 kg/m2 02/25/2024 Encounters Date Time Type Facility Location Provider Diagnosis 02/24/19 10:00 AM Office or other outpatient visit for the evaluation and management of an established patient, which requires at least 2 of these 3 harris components: a (09300) [facility] [address] [phone] Thony Das Acute liver failure with hepatic coma K72.01 ; Acute alcoholic hepatitis K70.10 ; Hepatic encephalopathy K76.82 ; Ascites due to alcoholic hepatitis K70.11 and Hypomagnesemia E83.42 02/25/19 25 12:34 PM Telephone Encounter [facility] [address] [phone] Edbrayan Das 03/02/19 25 04:27 PM Telephone Encounter [facility] [address] [place] [phone] Edbrayan Das 03/03/19 25 03:43 PM Telephone Encounter [facility] [address] [phone] Edbrayan Das 03/08/19 04:51 PM Telephone Encounter [facility] [address] [phone] Thony Das Assessments Encounter Date Diagnosis (ICD Code) Assessment Notes T reatment Notes Section Notes 02/25/2024 Acute alcoholic hepatitis (ICD-10 - K70.10) 1. Acute liver failure with coma/acute alcoholic hepatitis. She seems to be doing a lot better after discharge from her hospitalization. She had been on prednisolone which is currently tapered off. Would recommend checking CBC, CMP, PT/INR. Her hepatitis A total antibody in the hospital was positive. Her hepatitis B surface antigen and hepatitis B core antibody total were negative. I will check a hepatitis B antibody test to see if she is immune to hepatitis B. She has stopped alcohol completely since November 2023. If she can remain off of alcohol for 6 months, she will be a liver transplant candidate if needed. She will need to stay completely off of alcohol and she understands and will remain off of alcohol completely. Her is present in the room as well. She understands that if she drinks alcohol again she may not survive additional injury to her liver. 2. Ascites. She currently is on Aldactone 25 mg p.o. daily. There is no evidence for ascites on physical exam and there is no peripheral edema. She may be able to come off her diuretic. I would recommend a low-sodium diet. We discussed this in detail. 3. Hepatic encephalopathy. She has no asterixis and is not confused currently. She is using lactulose but is having about 6 stools per day. She may decrease her lactulose to titrate for 3 stools a day. 4. Diarrhea. She is also on magnesium supplementation which can increase diarrhea. I will check a magnesium level and if it is normal she may discontinue magnesium supplements. If she continues with diarrhea may need to consider C. difficile toxin screen as she did have C. difficile in the hospital and was treated with vancomycin orally. 5. Hypomagnesemia. Will check a magnesium level. Hopefully we can discontinue magnesium supplements given her diarrhea. 6. Nguyen's esophagus. She apparently has had an EGD and colonoscopy by Dr. Cummings in [place]. We will get office records from his office. She will need surveillance for her Nguyen's esophagus. 7. Right upper extremity deep vein thrombosis. She currently is on Eliquis. I have instructed to her to call the tank truck driver that saw her in the hospital to discuss when she might be able to discontinue anticoagulation. 02/25/2024 Acute liver failure with hepatic coma (ICD-10 - K72.01) 1. Acute liver failure with coma/acute alcoholic hepatitis. She seems to be doing a lot better after discharge from her hospitalization. She had been on prednisolone which is currently tapered off. Would recommend checking CBC, CMP, PT/INR. Her hepatitis A total antibody in the hospital was positive. Her hepatitis B surface antigen and hepatitis B core antibody total were negative. I will check a hepatitis B antibody test to see if she is immune to hepatitis B. She has stopped alcohol completely since November 2023. If she can remain off of alcohol for 6 months, she will be a liver transplant candidate if needed. She will need to stay completely off of alcohol and she understands and will remain off of alcohol completely. Her is present in the room as well. She understands that if she drinks alcohol again she may not survive additional injury to her liver. 2. Ascites. She currently is on Aldactone 25 mg p.o. daily. There is no evidence for ascites on physical exam and there is no peripheral edema. She may be able to come off her diuretic. I would recommend a low-sodium diet. We discussed this in detail. 3. Hepatic encephalopathy. She has no asterixis and is not confused currently. She is using lactulose but is having about 6 stools per day. She may decrease her lactulose to titrate for 3 stools a day. 4. Diarrhea. She is also on magnesium supplementation which can increase diarrhea. I will check a magnesium level and if it is normal she may discontinue magnesium supplements. If she continues with diarrhea may need to consider C. difficile toxin screen as she did have C. difficile in the hospital and was treated with vancomycin orally. 5. Hypomagnesemia. Will check a magnesium level. Hopefully we can discontinue magnesium supplements given her diarrhea. 6. Nguyen's esophagus. She apparently has had an EGD and colonoscopy by Dr. Cummings in [place]. We will get office records from his office. She will need surveillance for her Nguyen's esophagus. 7. Right upper extremity deep vein thrombosis. She currently is on Eliquis. I have instructed to her to call the tank truck driver that saw her in the hospital to discuss when she might be able to discontinue anticoagulation. 02/25/2024 Hepatic encephalopathy (ICD-10 - K76.82) 1. Acute liver failure with coma/acute alcoholic hepatitis. She seems to be doing a lot better after discharge from her hospitalization. She had been on prednisolone which is currently tapered off. Would recommend checking CBC, CMP, PT/INR. Her hepatitis A total antibody in the hospital was positive. Her hepatitis B surface antigen and hepatitis B core antibody total were negative. I will check a hepatitis B antibody test to see if she is immune to hepatitis B. She has stopped alcohol completely since November 2023. If she can remain off of alcohol for 6 months, she will be a liver transplant candidate if needed. She will need to stay completely off of alcohol and she understands and will remain off of alcohol completely. Her is present in the room as well. She understands that if she drinks alcohol again she may not survive additional injury to her liver. 2. Ascites. She currently is on Aldactone 25 mg p.o. daily. There is no evidence for ascites on physical exam and there is no peripheral edema. She may be able to come off her diuretic. I would recommend a low-sodium diet. We discussed this in detail. 3. Hepatic encephalopathy. She has no asterixis and is not confused currently. She is using lactulose but is having about 6 stools per day. She may decrease her lactulose to titrate for 3 stools a day. 4. Diarrhea. She is also on magnesium supplementation which can increase diarrhea. I will check a magnesium level and if it is normal she may discontinue magnesium supplements. If she continues with diarrhea may need to consider C. difficile toxin screen as she did have C. difficile in the hospital and was treated with vancomycin orally. 5. Hypomagnesemia. Will check a magnesium level. Hopefully we can discontinue magnesium supplements given her diarrhea. 6. Nguyen's esophagus. She apparently has had an EGD and colonoscopy by Dr. Cummings in [place]. We will get office records from his office. She will need surveillance for her Nguyen's esophagus. 7. Right upper extremity deep vein thrombosis. She currently is on Eliquis. I have instructed to her to call the tank truck driver that saw her in the hospital to discuss when she might be able to discontinue anticoagulation. 02/25/2024 Ascites due to alcoholic hepatitis (ICD-10 - K70.11) 1. Acute liver failure with coma/acute alcoholic hepatitis. She seems to be doing a lot better after discharge from her hospitalization. She had been on prednisolone which is currently tapered off. Would recommend checking CBC, CMP, PT/INR. Her hepatitis A total antibody in the hospital was positive. Her hepatitis B surface antigen and hepatitis B core antibody total were negative. I will check a hepatitis B antibody test to see if she is immune to hepatitis B. She has stopped alcohol completely since November 2023. If she can remain off of alcohol for 6 months, she will be a liver transplant candidate if needed. She will need to stay completely off of alcohol and she understands and will remain off of alcohol completely. Her is present in the room as well. She understands that if she drinks alcohol again she may not survive additional injury to her liver. 2. Ascites. She currently is on Aldactone 25 mg p.o. daily. There is no evidence for ascites on physical exam and there is no peripheral edema. She may be able to come off her diuretic. I would recommend a low-sodium diet. We discussed this in detail. 3. Hepatic encephalopathy. She has no asterixis and is not confused currently. She is using lactulose but is having about 6 stools per day. She may decrease her lactulose to titrate for 3 stools a day. 4. Diarrhea. She is also on magnesium supplementation which can increase diarrhea. I will check a magnesium level and if it is normal she may discontinue magnesium supplements. If she continues with diarrhea may need to consider C. difficile toxin screen as she did have C. difficile in the hospital and was treated with vancomycin orally. 5. Hypomagnesemia. Will check a magnesium level. Hopefully we can discontinue magnesium supplements given her diarrhea. 6. Nguyen's esophagus. She apparently has had an EGD and colonoscopy by Dr. Cummings in [place]. We will get office records from his office. She will need surveillance for her Nguyen's esophagus. 7. Right upper extremity deep vein thrombosis. She currently is on Eliquis. I have instructed to her to call the tank truck driver that saw her in the hospital to discuss when she might be able to discontinue anticoagulation. 02/25/2024 Hypomagnesemia (ICD-10 - E83.42) 1. Acute liver failure with coma/acute alcoholic hepatitis. She seems to be doing a lot better after discharge from her hospitalization. She had been on prednisolone which is currently tapered off. Would recommend checking CBC, CMP, PT/INR. Her hepatitis A total antibody in the hospital was positive. Her hepatitis B surface antigen and hepatitis B core antibody total were negative. I will check a hepatitis B antibody test to see if she is immune to hepatitis B. She has stopped alcohol completely since November 2023. If she can remain off of alcohol for 6 months, she will be a liver transplant candidate if needed. She will need to stay completely off of alcohol and she understands and will remain off of alcohol completely. Her is present in the room as well. She understands that if she drinks alcohol again she may not survive additional injury to her liver. 2. Ascites. She currently is on Aldactone 25 mg p.o. daily. There is no evidence for ascites on physical exam and there is no peripheral edema. She may be able to come off her diuretic. I would recommend a low-sodium diet. We discussed this in detail. 3. Hepatic encephalopathy. She has no asterixis and is not confused currently. She is using lactulose but is having about 6 stools per day. She may decrease her lactulose to titrate for 3 stools a day. 4. Diarrhea. She is also on magnesium supplementation which can increase diarrhea. I will check a magnesium level and if it is normal she may discontinue magnesium supplements. If she continues with diarrhea may need to consider C. difficile toxin screen as she did have C. difficile in the hospital and was treated with vancomycin orally. 5. Hypomagnesemia. Will check a magnesium level. Hopefully we can discontinue magnesium supplements given her diarrhea. 6. Nguyen's esophagus. She apparently has had an EGD and colonoscopy by Dr. Cummings in [place]. We will get office records from his office. She will need surveillance for her Nguyen's esophagus. 7. Right upper extremity deep vein thrombosis. She currently is on Eliquis. I have instructed to her to call the tank truck driver that saw her in the hospital to discuss when she might be able to discontinue anticoagulation. Plan Of Treatment Pending Test Test Name Order Date Hepatic Function Panel 12/09/2023 PT INR (Prothrombin Time and INR) 2023 Insurance Providers Payer Name Payer Address Payer Phone Subscriber Number Group Number Insured Name Patient Relationship to Insured Coverage Start Date Coverage End Date [facility] [address] [place] [address] [id number] ARLENE NICK Self - patient is the insured 2024 Medical (General) History Medical History History ICD Code hypothyroidism Barretts esophagus alcoholic hepatitis ascites Hepatic encephalopathy DVT RUE Chronic Anticoagulation Eliquis chelo dificile GERD Vaccine: None / Aaron(a) Surgical History Surgery Date(Month/Year) Hysterectomy [place] tooth extraction Appendectomy Colonoscopy C section X-2 Lysis of adhesions and small bowel resection for possible stricture of the small bowel 2008 Hospitalization History Reason Date(Month/Year) [facility] Liver failure/ severe alcoholic hepa titis 11/27-12/25/2023
[2025-02-08 13:47] LABS: Ammonia 81 umol/L (13-55)
== END 2025-02-08 13:11 | disposition home or self-care (01) ==
LOC: HO.LAB 13:10
DX: K70.31 Alcoholic cirrhosis of liver with ascites (principal); F10.20 Alcohol dependence, uncomplicated
CPT/HCPCS: 36415; 82140

== ENCOUNTER 2025-02-15 11:55 | Outpatient (REF) | payer OTHER, SELFPAY ==
[2025-02-15 12:21] LABS: Ammonia 25 umol/L (13-55)
--- OUTSIDE RECORDS SUMMARY | 2025-02-15 13:45 | XMS_ITS | Clinical Summary ---
Author Organization [facility] Address [address] [place] [address] Care Team Providers Care Methods And Procedures Analyst Name Role Phone Obed Amezcua MD Primary [...] S/CO-HIV 0.08 LAB CHEMISTRY [facility]23 [facility] Non[facility] Nonreactive LAB CHEMISTRY METHOD 11/28/2023 18:13 [facility] Blood BLOOD / Unknown Venipuncture / Unknown 11/28/2023 15:48 EDT 11/28/2023 16:41 EDT [facility] LABORATORY - 11/28/2023 18:13 EDT This test [...] MD LAB BLOOD ORDERABLES Final Resu lt [facility] [address] from Last 3 Months or Most [...] hospital stay) 11/28/2023 11/29/2023 Insurance MEDICAID PENDING [facility] PENDING Advance Directives * Full Code (Latest Code Status on File) Date Activated Date Inactivated Comments 11/28/2023 12:21 12/25/2023 16:29 Care Teams Methods And Procedures Analyst Relationship Specialty Start Date End Date Obed Amezcua MD PCP - General 11/17/23
== END 2025-02-15 11:56 | disposition home or self-care (01) ==
LOC: HO.LAB 11:55
DX: K70.31 Alcoholic cirrhosis of liver with ascites (principal); F10.20 Alcohol dependence, uncomplicated
CPT/HCPCS: 36415; 82140